=== PATIENT | male | born 1940 | race Caucasian/White ===

== ENCOUNTER 2024-01-17 10:04 | Outpatient (CLI) | payer OTHER, SELFPAY ==
--- NOTE | 2024-01-17 10:10 | MR_ITS ---
WS: [id number] MRI BRAIN WITH AND WITHOUT CONTRAST HISTORY: DEMENTIA COMPARISON: None available. TECHNIQUE: Multiplanar imaging performed through the brain with MultiHance 16 ml's IV. No acute infarcts are seen. Bo-white matter differentiation is well preserved. Mild symmetric volume loss and atrophy. Mild scattered small vessel ischemic changes. No prior infarc t. Ventricles and extra-axial spaces are normal. Clivus and pituitary gland are normal. Visualized posterior fossa and brainstem are also normal. Postcontrast images are negative for masses or vascular malformations. Dural venous sinuses are normal. Paranasal sinuses: Bilateral mucous retention cysts in the maxillary sinuses and heterogeneous mucope riosteal thickening on the LEFT. Mastoid air cells: Normal. Calvarium and scalp: Normal. MR/MR head wo/w con [id number] IMPRESSION: 1. No acute infarct or hemorrhage. 2. Mild symmetric cerebral volume loss and small vessel disease. 3. No enhancing masses. 4. No prior infarct.
[2024-01-17] MEDS: gadobenate dimeglumine 20 mL vial IV (10:58)
== END 2024-01-17 10:05 | disposition home or self-care (01) ==
LOC: RAD 10:06
PROVIDERS: PCP Family Medicine; Visit Provider Family Medicine
DX: J34.1 Cyst and mucocele of nose and nasal sinus (principal); J34.89 Other specified disorders of nose and nasal sinuses
CPT/HCPCS: 70553

== ENCOUNTER 2024-02-01 11:38 | Outpatient (CLI) | payer OTHER, SELFPAY ==
--- NOTE | 2024-02-01 11:44 | MR_ITS ---
WS: [id number] MRI LUMBAR SPINE NONCONTRAST HISTORY: SPINAL STENOSIS COMPARISON: None available. TECHNIQUE: Sagittal and axial multisequence imaging is submitted. T7-8: Very tiny central disc protrusion slightly contacting the thoracic cord. L4 anterolisthesis by 2 mm. No acute fracture. Disc spaces and vertebral body heights are well-preserved. Conus terminates normally at L1-2 disc level. L1-L2: Mild annular disc bulging. Mild encroachment upon the ventral thecal sac and subarticular rece sses. L2-L3: Mild diffuse annular disc bulging encroaching upon the ventral thecal sac and subarticular rec esses. Mild facet joint arthritis. Mild bilateral foraminal stenosis. L3-L4: Mild annular disc bulging with mild ligamentum flavum and facet arthritis. Mild central, subar ticular recess and RIGHT foraminal stenosis. Moderate LEFT foraminal stenosis. L4-L5: Mild annular disc bulging. Marked ligamentum flavum and facet arthritis encroaching upon the t hecal sac. Severe central, bilateral subarticular recess and moderate to severe foraminal stenosis. T here is significant encroachment upon the L4 and L5 nerve roots. L5-S1: Mild annular disc bulging. RIGHT foraminal focal disc protrusion. Mild RIGHT foraminal stenosi s. Moderate facet arthritis. Paravertebral soft tissues are normal. MR/MR lumbar spine wo con* [id number] IMPRESSION: 1. L4 anterolisthesis by 2 mm. 2. L4-5: Severe central, bilateral subarticular recess and moderate to severe foraminal stenosis. Significant encroachment upon the L4 and L5 nerve roots. 3. L3-4: Mild central, subarticular recess and RIGHT foraminal stenosis. Moder ate LEFT foraminal stenosis. 4. L5-S1: Moderate facet arthritis. Small RIGHT foraminal disc protrusion with mild RIGHT foraminal narrowing. 5. L2-3: Mild bilateral foraminal stenosis.
== END 2024-02-01 11:39 | disposition home or self-care (01) ==
LOC: RAD 11:38
PROVIDERS: PCP Family Medicine; Visit Provider Family Medicine
DX: M48.061 Spinal stenosis, lumbar region without neurogenic claudication (principal); M43.16 Spondylolisthesis, lumbar region; M99.63 Osseous and subluxation stenosis of intervertebral foramina of lumbar region; M47.896 Other spondylosis, lumbar region; M51.26 Other intervertebral disc displacement, lumbar region
CPT/HCPCS: 72148

== ENCOUNTER → 2024-07-10 13:24 | Outpatient (BNVA) | payer OTHER, SELFPAY | PROVIDERS: PCP Family Medicine; Referring Provider Family Medicine; Visit Provider Anesthesiology Pain Medicine | DX: M54.9 Dorsalgia, unspecified (principal); M48.062 Spinal stenosis, lumbar region with neurogenic claudication; M47.816 Spondylosis without myelopathy or radiculopathy, lumbar region | CPT/HCPCS: 99204 ==

== ENCOUNTER → 2024-07-19 14:13 | Outpatient (BNVA) | payer OTHER, SELFPAY | PROVIDERS: PCP Family Medicine; Visit Provider Anesthesiology Pain Medicine | DX: M79.18 Myalgia, other site (principal); M48.062 Spinal stenosis, lumbar region with neurogenic claudication; M54.9 Dorsalgia, unspecified; M47.816 Spondylosis without myelopathy or radiculopathy, lumbar region | CPT/HCPCS: 20553; 99213; J1010; J3490 ==

== ENCOUNTER → 2024-10-11 10:33 | Outpatient (BNVA) | payer OTHER, SELFPAY | PROVIDERS: PCP Family Medicine; Visit Provider Anesthesiology Pain Medicine | DX: M79.18 Myalgia, other site (principal); M48.062 Spinal stenosis, lumbar region with neurogenic claudication; M54.9 Dorsalgia, unspecified; M47.816 Spondylosis without myelopathy or radiculopathy, lumbar region | CPT/HCPCS: 20553; 99213; J1010; J3490 ==

== ENCOUNTER → 2025-01-02 09:22 | Outpatient (BNVA) | payer OTHER, SELFPAY | PROVIDERS: PCP Family Medicine; Visit Provider Anesthesiology Pain Medicine | DX: M79.18 Myalgia, other site (principal); M48.062 Spinal stenosis, lumbar region with neurogenic claudication; M47.816 Spondylosis without myelopathy or radiculopathy, lumbar region | CPT/HCPCS: 20553; 99213; J1010; J3490 ==

== ENCOUNTER → 2025-01-24 08:47 | Outpatient (BNVA) | payer OTHER, SELFPAY | PROVIDERS: PCP Family Medicine; Visit Provider Student in an Organized Health Care Education/Training Program | DX: M19.011 Primary osteoarthritis, right shoulder (principal); M75.41 Impingement syndrome of right shoulder | CPT/HCPCS: 20610; 73030; 99204; J3301; J9999 ==